=== PATIENT | male | born 1970 ===

== ENCOUNTER 2019-08-18 15:06 | IRF | payer OTHER, SELFPAY ==
[2019-08-18 15:40] VITALS: BP 127/74; PULSE 70; RESP 18; TEMP 36.4; O2SAT 100; BMI 32.4
[2019-08-18 16:00] VITALS: PULSE 70; RESP 18; O2SAT 100
[2019-08-18 17:01] LABS: Glucose Point of Care 148 (65-105)
[2019-08-18] MEDS: RIVAROXABAN 20 MG TABLET PO (17:34)
[2019-08-18] MEDS: DULOXETINE HCL 30 MG CAPSULE.DR PO (17:35)
[2019-08-18] MEDS: metFORMIN HCL 500 MG TABLET 1000 MG PO (17:35)
[2019-08-18] MEDS: FERROUS SULFATE 324 MG TABLET PO (17:36)
--- NOTE | 2019-08-18 18:13 | ADMGEN ---
This patient, Kwan Woods, was admitted to [facility] Room 225-02. Patient/family oriented to hospital policies and general routines including ID bracelet, bed and alarms, visiting hours, pain management, procedures, bathroom and other care routines, personal items, smoking policy, room service/diet, and visiting hours. Valuables list has been completed. Information on how to activate the Rapid Response Team has been discussed. Patient/Family are encouraged to report perceived risks to care and to ask questions if they do not understand what they are told or what they should do.
[2019-08-18 20:10] LABS: Glucose Point of Care 213 (65-105)
[2019-08-18] MEDS: CEFUROXIME AXETIL 250 MG TABLET 500 MG PO (20:39)
[2019-08-18 20:41] VITALS: PULSE 80
[2019-08-18] MEDS: METOPROLOL TARTRATE 25 MG TABLET PO (20:41)
[2019-08-18] MEDS: ATORVASTATIN 20 MG TABLET PO (20:42)
[2019-08-18 22:00] VITALS: BP 136/66; PULSE 77; RESP 18; TEMP 36.5; O2SAT 96
[2019-08-19 04:48] LABS: Basophils Percent Auto 0.4 % (0.2-1.2); Eosinophils Absolute Auto 0.5 K/mm3 (0-0.3); Eosinophils Percent Auto 6.9 % (0-4.4); Hematocrit 24.6 % (42.0-52.0); Hemoglobin 7.9 g/dL (14.0-18.0); Immature Granulocyte Absolute 0.19 K/mm3 (0.00-0.031); Immature Granulocyte Percent A 2.8 % (0-0.5); Lymphocytes Absolute Auto 1.54 K/mm3 (0.9-3.2); Lymphocytes Percent Auto 23.1 % (18.3-44.2); Mean Corpuscular HGB Conc 32.1 g/dl (32-36); Mean Corpuscular Hemoglobin 27.1 pg (26-34); Mean Corpuscular Volume 84.2 fl (80-100); Mean Platelet Volume 8.8 fl (7.4-10.4); Monocytes Absolute Auto 0.5 K/mm3 (0.1-0.6); Monocytes Percent Auto 6.9 % (2.6-8.5); Neutrophils Percent Auto 59.9 % (45.5-73.1); Platelet Count Result 352 k/mm3 (150-375); Red Blood Count 2.92 M/mm3 (4.6-6.20); Red Cell Distribution Width 13.5 % (11.5-14.5); White Blood Count 6.7 K/mm3 (4.5-10.0)
[2019-08-19 05:10] LABS: Blood Urea Nitrogen 5 mg/dL (9-20); Calcium 8.3 mg/dL (8.4-10.2); Carbon Dioxide 25 mmol/L (22-30); Chloride 99 mmol/L (98-107); Estimated CRCL calculation 135 ml/min; Estimated Glomerular Filt Rate > 60; Glucose 190 mg/dL (75-110); Potassium 3.9 mmol/L (3.4-5.0); Sodium 132 mmol/L (137-145)
[2019-08-19 06:00] VITALS: BP 128/62; PULSE 69; RESP 19; TEMP 36.2; O2SAT 99
[2019-08-19 07:02] LABS: Glucose Point of Care 189 (65-105)
[2019-08-19] MEDS: lisinopriL 20 MG TABLET PO (09:24)
[2019-08-19] MEDS: FERROUS SULFATE 324 MG TABLET PO ×2 (09:24→16:58)
[2019-08-19] MEDS: MELOXICAM 7.5 MG TABLET 15 MG PO (09:24)
[2019-08-19] MEDS: metFORMIN HCL 500 MG TABLET 1000 MG PO ×2 (09:24→16:59)
[2019-08-19 09:25] VITALS: PULSE 69
[2019-08-19] MEDS: METOPROLOL TARTRATE 25 MG TABLET PO ×2 (09:25→20:09)
[2019-08-19] MEDS: CHOLECALCIFEROL 1,000 UNIT TABLET 2000 UNITS PO (09:25)
[2019-08-19] MEDS: CEFUROXIME AXETIL 250 MG TABLET 500 MG PO ×2 (09:25→20:08)
[2019-08-19] MEDS: DULOXETINE HCL 30 MG CAPSULE.DR PO ×2 (09:25→17:00)
[2019-08-19] MEDS: BISACODYL 5 MG TABLET EC 10 MG PO (09:25)
--- NOTE | 2019-08-19 09:30 | WPDREHABHP ---
H&P: HPI History of Present Illness Chief complaint: R BKA Narrative: Kwan Woods is a 49 year old male HISTORY OF PRESENT ILLNESS: The patient's primary rehab impairment category is 10- amputation-lower extremity The etiologic diagnosis is osteomyelitis right foot I saw this patient [id number] on August 19 at 9:30 a.m. The patient is a 49-year-old right-handed white male with a prior medical history of diabetes mellitus with polyneuropathy osteomyelitis of right foot and septic arthritis status post recent toe amputation who presented to [facility] on August 13, 2019 with worsening swelling of the right foot associated with fever chills and pain. Patient is being followed by a wallpaper hanger helper and he is status post amputation of right 1st toe, 3rd toe, and 1st metatarsal a few months ago and recent removal of blister on plantar aspect. He was found to have a 3 x 6 centimeter open skin ulceration in the plantar aspect of his right foot, skin erythema with right foot swelling that has been chronic to some extent. The patient was placed on IV vancomycin and ceftriaxone. Infectious Disease was consulted concerning his right diabetic foot infection and osteomyelitis and recommended switching Rocephin to Unasyn to have an aura be coverage. Infectious Disease was concerned the foot was not salvageable. Cardiology consulted for atrial fibrillation with rapid ventricular response and place patient on heparin drip, Cardizem drip, and oral Cardizem was added to medication regiment. Echocardiogram showed normal left ventricular function with trace pericardial effusion and no major valvular disease. Next week on Myoview ordered and was negative he was weaned from the Cardizem drip and cleared for surgery. Vascular surgery consulted and recommended a right [id number] amputation. Patient's blood supply to the lower extremity was reasonably normal indicating that the proper healing at the amputation site would be expected. His surgery was performed on August 15, 2019. Postoperatively he experienced acute postoperative pain and acute blood-loss anemia. His pain is controlled on oral pain medications and his hemoglobin is low but stable at 7.9. Final blood cultures are negative. He did fall at around midnight on August 18, 2019. Nurse was right outside the door vital signs stable and no signs of injury. Therapy was initiated at the acute care facility and the patient transferred to us from [facility] on August 18 2019 FALLS OR SURGERIES: The patient has had major surgeries in the 100 days prior to admission. They had no falls in the past year. They had no falls with injury in the past year. 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 He was working full-time as a delivery service planner. He reported no falls in the past 6 months. He underwent a right [id number] amputation this hospitalization FAMILY HISTORY: significant for hypertension and possibly for diabetes PRIOR LEVEL OF FUNCTION: Eating was INDEPENDENT Oral Care was INDEPENDENT Toileting Hygiene was INDEPENDENT Shower/Bathing was INDEPENDENT Upper Body Dressing was INDEPENDENT Lower Body Dressing was INDEPENDENT Donning/Deloit Footwear was INDEPENDENT Rolling Left and Right was INDEPENDENT Sit to Lying was INDEPENDENT Lying to Sitting was INDEPENDENT Sit to Stand was INDEPENDENT Bed to Chair Trans
[2019-08-19 11:56] LABS: Glucose Point of Care 164 (65-105)
[2019-08-19 13:41] VITALS: BMI 32.4
[2019-08-19 14:00] VITALS: BP 128/73; PULSE 84; RESP 20; TEMP 36.2; O2SAT 100
--- NOTE | 2019-08-19 14:05 | RPD ---
INDIVIDUALIZED PLAN OF CARE FOR Kwan Woods Brief Synthesis of Pre-Admission Screen, Post-Admission Evaluation and Therapy Evaluations: The patient presents to rehab with osteomyelitis right foot. Comorbidities include atrial fibrillation, hypertension, diabetes mellitus.The patient requires physician services for medical oversight, management of post-op complications in the setting of present comorbidities, management of diabetes mellitus, new atrial fibrillation diagnosis, and pain management. Post-op complications have included atrial fibrillation, acute blood loss anemia, and postoperative pain. The patient requires nursing services for anticoagulation therapy, diabetes training, DVT prophylactics, infection protection, medication management and education, pressure relief, and wound care. Deficits include:ADLs, Balance, Endurance, Mobility, Pain Management, ROM, Safety, Strength, Transfers Cooper Helper/Case Management for: Discharge Planning and Patient/Family Counseling Physical Therapy: 5 days per week for 90 minutes. Treatments may include: Therapeutic Exercise, Gait Training, Neuromuscular Re-education, Transfer Training, Community Reintegration, Bed Mobility, Patient/Family Education, Wheelchair Mobility Group Therapy/Concurrent Therapy Rationales: -Improve attention span during functional activities in a distracted environment. -Enhance problem solving and/or adequate judgment skills during functional activities in a distracted environment. -Promote increased safety awareness in a distracted environment to reduce fall risk with functional tasks, transfers, and ambulation to allow a more safe, self-sufficient return to the home environment. -Improve dynamic balance skills to promote safety and independence with functional activities in a distracted environment for maximum gain. Occupational Therapy: 5 days per week for 90 minutes. Treatments may include: Therapeutic Exercise, Therapeutic Activity, Cognitive Training, Self-Care Transfer Training, Community Reintegration, Home Management, Patient/Family Education, Wheelchair Mobility Training, Energy Conservation Training Group Therapy/Concurrent Therapy Rationales: -Allow therapist to observe and teach generalization and carry-over of skills learned in individual therapy. -Enhance problem solving and sequencing skills during therapeutic activities in a distracted environment. -Promote increased safety awareness in a realistic setting to reduce fall risk with functional tasks due to visual and verbal distractions. -Increase functional level with ADLs, ADL transfers and use of adaptive equipment through therapeutic activities with others while promoting safety to allow a more safe, self-sufficient return home. Medical Prognosis: Good Anticipated Length of Stay: 10 days Rehab Goals: Eating Goal: 06-Independent Oral Hygiene Goal: 06-Independent Toileting Hygiene Goal: 06-Independent Shower/Bathe Self Goal: 06-Independent Upper Body Dressing Goal: 06-Independent Lower Body Dressing Goal: 06-Independent Putting On/Taking Off Footwear Goal: 06-Independent Rolling Left and Right Goal: 06-Independent Sit to Lying Goal: 06-Independent Lying to Sitting on Side of Bed Goal: 06-Independent Sit to Stand Goal: 06-Independent Chair/Smn-yn-Anlnv Transfer Goal: 06-Independent Toilet Transfer Goal: 06-Independent Car Transfer Goal: 06-Independent Walk 10' Goal: 06-Independent Walk 50' with Two Turns Goal: 06-Independent Walk 150' Goal: 06-Independent Walk 10' on Uneven Surface Goal: 06-Independent 1 Step (Curb) Goal: 05-Setup or Clean Up Assistance 4 Steps Goal: 05-Setup or Clean Up Assistance 12 Steps Goal Score: 05-Setup or Clean Up Assistance Picking Up Object Goal: 06-Independent Wheel 50' with Two Turns Score: 06-Independent Wheel 150' Goal: 06-Independent Anticipated discharge destination: Home
--- NOTE | 2019-08-19 14:09 | PCNSR ---
On 08/19/19, the student, Leandra Betancur, provided care and completed [facility] documentation on this patient. I have reviewed the student's documentation and agree with the findings.
[2019-08-19] MEDS: RIVAROXABAN 20 MG TABLET PO (16:58)
[2019-08-19 17:39] LABS: Glucose Point of Care 223 (65-105)
[2019-08-19] MEDS: glipiZIDE XL 5 MG TABCR PO (20:08)
[2019-08-19 20:09] VITALS: PULSE 84
[2019-08-19] MEDS: ATORVASTATIN 20 MG TABLET PO (20:09)
[2019-08-19 21:14] LABS: Glucose Point of Care 256 (65-105)
[2019-08-19 22:00] VITALS: BP 138/53; PULSE 74; RESP 19; TEMP 36.5; O2SAT 100
[2019-08-20 06:00] VITALS: BP 123/64; PULSE 68; RESP 19; TEMP 36.2; O2SAT 100
[2019-08-20 06:53] LABS: Glucose Point of Care 185 (65-105)
[2019-08-20] MEDS: CEFUROXIME AXETIL 250 MG TABLET 500 MG PO ×2 (08:46→20:19)
[2019-08-20] MEDS: MELOXICAM 7.5 MG TABLET 15 MG PO (08:46)
[2019-08-20] MEDS: CHOLECALCIFEROL 1,000 UNIT TABLET 2000 UNITS PO (08:47)
[2019-08-20] MEDS: METOPROLOL TARTRATE 25 MG TABLET PO ×2 (08:47→20:19)
[2019-08-20] MEDS: DULOXETINE HCL 30 MG CAPSULE.DR PO ×2 (08:47→18:02)
[2019-08-20] MEDS: metFORMIN HCL 500 MG TABLET 1000 MG PO ×2 (08:47→18:01)
[2019-08-20] MEDS: lisinopriL 20 MG TABLET PO (08:47)
[2019-08-20] MEDS: FERROUS SULFATE 324 MG TABLET PO ×2 (08:48→18:00)
--- NOTE | 2019-08-20 10:23 | PCOTNOTE ---
Pt performed kitchen mobility using wheeled walker for 15 minutes. Pt able to demonstrate safety when removing items from fridge, reaching high to retrieve items, reaching low to retrieve items, and wash a dish with SBA.
[2019-08-20 12:09] LABS: Glucose Point of Care 86 (65-105)
[2019-08-20 14:00] VITALS: BP 128/68; PULSE 72; RESP 20; TEMP 36.3; O2SAT 98
[2019-08-20] MEDS: RIVAROXABAN 20 MG TABLET PO (18:01)
[2019-08-20] MEDS: glipiZIDE XL 5 MG TABCR PO (20:19)
[2019-08-20] MEDS: ATORVASTATIN 20 MG TABLET PO (20:19)
[2019-08-20 20:40] LABS: Glucose Point of Care 168 (65-105)
[2019-08-20 21:14] VITALS: BP 139/73; PULSE 69; RESP 20; TEMP 36.5; O2SAT 99
[2019-08-21 05:56] VITALS: BP 129/72; PULSE 64; RESP 20; TEMP 36.6; O2SAT 99
[2019-08-21 06:37] LABS: Glucose Point of Care 155 (65-105)
[2019-08-21 08:00] VITALS: PULSE 78; RESP 20; O2SAT 98
[2019-08-21 09:52] VITALS: PULSE 64
[2019-08-21] MEDS: lisinopriL 20 MG TABLET PO (09:52)
[2019-08-21] MEDS: metFORMIN HCL 500 MG TABLET 1000 MG PO ×2 (09:52→17:37)
[2019-08-21] MEDS: METOPROLOL TARTRATE 25 MG TABLET PO ×2 (09:52→20:39)
[2019-08-21] MEDS: CEFUROXIME AXETIL 250 MG TABLET 500 MG PO ×2 (09:53→20:39)
[2019-08-21] MEDS: FERROUS SULFATE 324 MG TABLET PO ×2 (09:53→17:37)
[2019-08-21] MEDS: CHOLECALCIFEROL 1,000 UNIT TABLET 2000 UNITS PO (09:53)
[2019-08-21] MEDS: BISACODYL 5 MG TABLET EC 10 MG PO (09:53)
[2019-08-21] MEDS: MELOXICAM 7.5 MG TABLET 15 MG PO (09:53)
[2019-08-21] MEDS: DULOXETINE HCL 30 MG CAPSULE.DR PO ×2 (09:54→17:37)
[2019-08-21 12:11] LABS: Glucose Point of Care 68 (65-105)
[2019-08-21 14:00] VITALS: BP 113/64; PULSE 78; RESP 20; TEMP 36.2; O2SAT 98
[2019-08-21] MEDS: RIVAROXABAN 20 MG TABLET PO (17:38)
[2019-08-21 20:39] VITALS: PULSE 80
[2019-08-21] MEDS: ATORVASTATIN 20 MG TABLET PO (20:39)
[2019-08-21] MEDS: glipiZIDE XL 5 MG TABCR PO (20:39)
[2019-08-21] MEDS: GUAIFENESIN/DEXTROMETHORPHAN 10 ML UDC PO (20:41)
[2019-08-21 21:25] LABS: Glucose Point of Care 121 (65-105)
[2019-08-21 22:00] VITALS: BP 139/69; PULSE 74; RESP 18; TEMP 36.7; O2SAT 96
[2019-08-22 06:00] VITALS: BP 132/64; PULSE 72; RESP 18; TEMP 36.8; O2SAT 99
[2019-08-22 07:42] LABS: Glucose Point of Care 134 (65-105)
[2019-08-22] MEDS: metFORMIN HCL 500 MG TABLET 1000 MG PO ×2 (08:30→16:46)
[2019-08-22 08:31] VITALS: PULSE 72
[2019-08-22] MEDS: CEFUROXIME AXETIL 250 MG TABLET 500 MG PO ×2 (08:31→21:38)
[2019-08-22] MEDS: CHOLECALCIFEROL 1,000 UNIT TABLET 2000 UNITS PO (08:31)
[2019-08-22] MEDS: FERROUS SULFATE 324 MG TABLET PO ×2 (08:31→16:46)
[2019-08-22] MEDS: MELOXICAM 7.5 MG TABLET 15 MG PO (08:31)
[2019-08-22] MEDS: DULOXETINE HCL 30 MG CAPSULE.DR PO ×2 (08:31→16:46)
[2019-08-22] MEDS: METOPROLOL TARTRATE 25 MG TABLET PO ×2 (08:31→21:38)
[2019-08-22] MEDS: lisinopriL 20 MG TABLET PO (08:33)
--- NOTE | 2019-08-22 09:32 | WPDNEURORHBP ---
Subjective Date/time seen: 08/22/19 09:32 Review of Systems Review of Systems: All systems reviewed & are unremarkable except as noted in HPI and below Functional Status Ambulation Ability Ability to Ambulate 10 Feet: Standby Assistance Ability to Ambulate 50 Feet With 2 Turns: Standby Assistance Ability to Ambulate 150 Feet: Standby Assistance Ambulation Assistive Devices: Walker, Standard Transfers Ability Ability to Transfer In/Out of Chair: Independent Exam Const: General: cooperative, comfortable and no acute distress Nutritional Appearance: well nourished Orientation/consciousness: patient oriented x3 Neck: Neck: full ROM and no lymphadenopathy Resp: Effort & Inspection: normal respiratory effort and able to speak in complete sentences Auscultation: clear to auscultation bilaterally Cardio: Rate: regular rate Rhythm: regular rhythm GI: Auscultation: normal bowel sounds Skin: General skin exam: no rashes or lesions noted (incision clean) Neuro: General: patient oriented x3 Gait exam (Neuro): Unable to assess gait (needs assistancce in all activities of living) Objective Data Vital Signs Vital Signs: Vital Signs - 24 hr 08/21/19 09:52 08/21/19 14:00 08/21/19 20:39 Temperature 36.2 C L Pulse Rate 64 78 80 Respiratory Rate 20 Blood Pressure 113/64 Pulse Oximetry 98 08/21/19 22:00 08/22/19 06:00 08/22/19 08:31 Temperature 36.7 C 36.8 C Pulse Rate 74 72 72 Respiratory Rate 18 18 Blood Pressure 139/69 132/64 Pulse Oximetry 96 99 Intake/Output Intake/Output: Intake & Output 08/19/19 08/20/19 08/21/19 08/22/19 23:59 23:59 23:59 23:59 Intake Total 1440 480 480 240 Balance 1440 480 480 240 Meds/Results Medications: Active Medications Generic Name Dose Route Start Last Admin Trade Name Freq PRN Reason Stop Dose Admin Acetaminophen 650 mg 08/18/19 15:50 Tylenol Tablet PO Q4H PRN Mild Pain (Scale Score 1-4) Hydrocodone Bitart/Acetaminophen 1 - 2 tab 08/18/19 15:50 [place] 5-325 Mg PO Q4H PRN Pain Atorvastatin Calcium 20 mg 08/18/19 21:00 08/21/19 20:39 Lipitor PO 20 mg HS CRYSTAL Administration Bisacodyl 10 mg 08/19/19 09:00 08/22/19 08:32 Dulcolax Tab PO Not Given DAILY [facility] Cefuroxime Axetil 500 mg 08/18/19 21:00 08/22/19 08:31 Ceftin PO 500 mg Q12HR CRYSTAL Administration Duloxetine HCl 30 mg 08/18/19 17:00 08/22/19 08:31 Cymbalta PO 30 mg BID CRYSTAL Administration Ferrous Sulfate 324 mg 08/18/19 17:00 08/22/19 08:31 Ferrous Sulfate PO 324 mg BIDWM CRYSTAL Administration Glipizide 5 mg 08/19/19 21:00 08/21/19 20:39 Glucotrol Xl PO 5 mg HS [facility] Administration Guaifenesin/Dextromethorphan 10 ml 08/21/19 11:15 08/21/19 20:41 Robitussin-Dm Syrup PO 10 ml Q4H PRN Administration Cough Lisinopril 20 mg 08/19/19 09:00 08/22/19 08:33 Prinivil PO 20 mg DAILY [facility] Administration Meloxicam 15 mg 08/19/19 09:00 08/22/19 08:31 Mobic PO 09/18/19 09:01 15 mg DAILY [facility] Administration Metformin HCl 1,000 mg 08/18/19 17:00 08/22/19 08:30 Glucophage PO 1,000 mg BID [facility] Administration Metoprolol Tartrate 25 mg 08/18/19 21:00 08/22/19 08:31 Lopressor PO 25 mg Q12HR CRYSTAL Administration Rivaroxaban 20 mg 08/18/19 18:00 08/21/19 17:38 Xarelto PO 20 mg QPM [facility] Administration Vitamin D 2,000 unit 08/19/19 09:00 08/22/19 08:31 Vitamin D PO 2,000 unit QAM [facility] Administration Labs Labs: Laboratory Results - last 24 hr 08/21/19 08/21/19 08/22/19 12:09 20:43 07:10 POC Capillary Glucose 68 121 H 134 H Progress Note: A&P Assessment and Plan (1) Below-knee amputation of right lower extremity: Code(s): S88.111A - Complete traumatic amputation at level between knee and ankle, right lower leg, initial encounter Status: Acute (2) Atrial fibrillation: Code(s): I48.91 - Unspecified atri
[2019-08-22 12:03] LABS: Glucose Point of Care 86 (65-105)
[2019-08-22 15:39] VITALS: BP 129/65; PULSE 77; RESP 17; TEMP 36.5; O2SAT 98
[2019-08-22] MEDS: RIVAROXABAN 20 MG TABLET PO (16:46)
[2019-08-22 16:56] LABS: Glucose Point of Care 78 (65-105)
[2019-08-22 20:27] VITALS: BP 133/66; PULSE 73; RESP 17; TEMP 36.4; O2SAT 99
[2019-08-22 21:27] LABS: Glucose Point of Care 220 (65-105)
[2019-08-22 21:38] VITALS: PULSE 76
[2019-08-22] MEDS: ATORVASTATIN 20 MG TABLET PO (21:38)
[2019-08-22] MEDS: glipiZIDE XL 5 MG TABCR PO (21:38)
[2019-08-23 06:41] VITALS: BP 135/79; PULSE 68; RESP 18; TEMP 36.8; O2SAT 100
[2019-08-23 07:07] LABS: Glucose Point of Care 96 (65-105)
[2019-08-23] MEDS: CEFUROXIME AXETIL 250 MG TABLET 500 MG PO ×2 (09:29→20:32)
[2019-08-23] MEDS: DULOXETINE HCL 30 MG CAPSULE.DR PO ×2 (09:29→16:47)
[2019-08-23] MEDS: CHOLECALCIFEROL 1,000 UNIT TABLET 2000 UNITS PO (09:29)
[2019-08-23] MEDS: FERROUS SULFATE 324 MG TABLET PO ×2 (09:29→16:47)
[2019-08-23] MEDS: metFORMIN HCL 500 MG TABLET 1000 MG PO ×2 (09:30→16:47)
[2019-08-23] MEDS: METOPROLOL TARTRATE 25 MG TABLET PO ×2 (09:30→20:32)
[2019-08-23] MEDS: lisinopriL 20 MG TABLET PO (09:30)
[2019-08-23] MEDS: MELOXICAM 7.5 MG TABLET 15 MG PO (09:30)
--- NOTE | 2019-08-23 13:46 | PCCCNOTE ---
On 08/23/19, the student, [Herb Hernandez], provided care and completed [facility] documentation on this patient. I have reviewed the student's documentation and agree with the findings.
[2019-08-23 14:00] VITALS: BP 112/66; PULSE 78; RESP 18; TEMP 36.3; O2SAT 98
[2019-08-23] MEDS: RIVAROXABAN 20 MG TABLET PO (16:47)
--- NOTE | 2019-08-23 16:48 | WPDNEURORHBP ---
Subjective Date/time seen: 08/23/19 16:48 Interval history: patient is doing remarkably well and will be discharged tomorrow he will be in the independent living does not have any complaints particularly referring to his cardiovascular system and also does not have any fevers chills sore throat or any sign of infectious process Review of Systems Constitutional: Constitutional: Reports no additional constitutional complaints Eyes: Eyes: Reports no additional eye complaints ENT: Reports system reviewed and no additional complaints, except as documented Cardiovascular: Cardiovascular: Reports no additional cardiovascular complaints Respiratory: Respiratory: Reports no additional respiratory complaints Gastrointestinal: Gastrointestinal: Reports no additional gastrointestinal complaints Genitourinary: Genitourinary: Reports no additional male genitourinary complaints Musculoskeletal: Musculoskeletal: Reports no additional musculoskeletal complaints Integumentary/Breasts: Skin/Breast: Reports system reviewed and no additional complaints, except as docu Neurologic: Reports system reviewed and no additional complaints, except as documented Psychiatric: Psychiatric: Reports no additional psychiatric complaints Functional Status Ambulation Ability Ability to Ambulate 10 Feet: Independent Ability to Ambulate 50 Feet With 2 Turns: Independent Ability to Ambulate 150 Feet: Independent Ambulation Assistive Devices: Walker, Wheeled Transfers Ability Ability to Transfer In/Out of Chair: Independent Exam Const: General: comfortable and no acute distress HENMT: General nose exam: Normal nares present Mouth: Yes moist mucous membranes Eyes: General: appearance normal, both eyes and all related structures Neck: Neck: supple and no JVD Resp: Effort & Inspection: normal respiratory effort Auscultation: clear to auscultation bilaterally Cardio: Rate: regular rate Rhythm: regular rhythm GI: GI Palp: Yes Soft to palpation Auscultation: normal bowel sounds Skin: General skin exam: normal color and no rashes or lesions noted Neuro: Other: patient's remain alert will oriented time place and person quite elaborate a dense history giving motor examination remains intact apart from the evidence of peripheral neuropathy and peripheral vascular disease the stump remains healthy Extrem: Other: right BKA Psych: Mental Status: mental status grossly normal Objective Data Vital Signs Vital Signs: Vital Signs - 24 hr 08/22/19 20:27 08/22/19 21:38 08/23/19 06:41 Temperature 36.4 C 36.8 C Pulse Rate 73 76 68 Respiratory Rate 17 18 Blood Pressure 133/66 135/79 Pulse Oximetry 99 100 08/23/19 14:00 Temperature 36.3 C L Pulse Rate 78 Respiratory Rate 18 Blood Pressure 112/66 Pulse Oximetry 98 Intake/Output Intake/Output: Intake & Output 08/20/19 08/21/19 08/22/19 08/23/19 23:59 23:59 23:59 23:59 Intake Total 938 117 3100 480 Balance 524 954 5167 480 Meds/Results Medications: Active Medications Generic Name Dose Route Start Last Admin Trade Name Freq PRN Reason Stop Dose Admin Acetaminophen 650 mg 08/18/19 15:50 Tylenol Tablet PO Q4H PRN Mild Pain (Scale Score 1-4) Hydrocodone Bitart/Acetaminophen 1 - 2 tab 08/18/19 15:50 [place] 5-325 Mg PO Q4H PRN Pain Atorvastatin Calcium 20 mg 08/18/19 21:00 08/22/19 21:38 Lipitor PO 20 mg HS CRYSTAL Administration Bisacodyl 10 mg 08/22/19 10:44 Dulcolax Tab PO DAILY PRN Constipation Cefuroxime Axetil 500 mg 08/18/19 21:00 08/23/19 09:29 Ceftin PO 500 mg Q12HR CRYSTAL Administration Duloxetine HCl 30 mg 08/18/19 17:00 08/23/19 09:29 Cymbalta PO 30 mg BID CRYSTAL Administration Ferrous Sulfate 324 mg 08/18/19 17:00 08/23/19 09:29 Ferrous Sulfate PO 324 mg BIDWM CRYSTAL Administration Glipizide 5 mg 08/19/19 21:00 08/22/19 21:38 Glucotrol Xl PO 5 mg HS CRYSTAL Adminis
[2019-08-23 17:04] LABS: Glucose Point of Care 127 (65-105)
[2019-08-23] MEDS: ATORVASTATIN 20 MG TABLET PO (20:32)
[2019-08-23] MEDS: glipiZIDE XL 5 MG TABCR PO (20:32)
[2019-08-23 22:00] VITALS: BP 124/56; PULSE 75; RESP 18; TEMP 35.7; O2SAT 99
[2019-08-24 06:00] VITALS: BP 124/56; PULSE 72; RESP 18; TEMP 35.7; O2SAT 99
[2019-08-24 06:13] LABS: Glucose Point of Care 114 (65-105)
[2019-08-24 08:00] VITALS: PULSE 72; RESP 18; O2SAT 99
[2019-08-24 08:22] VITALS: PULSE 72
[2019-08-24] MEDS: CEFUROXIME AXETIL 250 MG TABLET 500 MG PO (08:22)
[2019-08-24] MEDS: METOPROLOL TARTRATE 25 MG TABLET PO (08:22)
[2019-08-24] MEDS: CHOLECALCIFEROL 1,000 UNIT TABLET 2000 UNITS PO (08:22)
[2019-08-24] MEDS: FERROUS SULFATE 324 MG TABLET PO (08:23)
[2019-08-24] MEDS: MELOXICAM 7.5 MG TABLET 15 MG PO (08:23)
[2019-08-24] MEDS: DULOXETINE HCL 30 MG CAPSULE.DR PO (08:23)
[2019-08-24] MEDS: lisinopriL 20 MG TABLET PO (08:23)
[2019-08-24] MEDS: metFORMIN HCL 500 MG TABLET 1000 MG PO (08:23)
--- NOTE | 2019-08-24 10:50 | WPDNEURORHBP ---
Subjective Date/time seen: 08/24/19 10:50 Interval history: Patient is here because of right [id number] amputation has done very well in the rehab and ready to be discharged today does not have any complaints quite happy with the care he received Review of Systems Constitutional: Constitutional: Reports no additional constitutional complaints Eyes: Eyes: Reports no additional eye complaints ENT: Reports system reviewed and no additional complaints, except as documented Cardiovascular: Cardiovascular: Reports no additional cardiovascular complaints Respiratory: Respiratory: Reports no additional respiratory complaints Gastrointestinal: Gastrointestinal: Reports no additional gastrointestinal complaints Genitourinary: Genitourinary: Reports no additional male genitourinary complaints Musculoskeletal: Musculoskeletal: Reports no additional musculoskeletal complaints Integumentary/Breasts: Skin/Breast: Reports system reviewed and no additional complaints, except as docu Neurologic: Reports system reviewed and no additional complaints, except as documented Psychiatric: Psychiatric: Reports no additional psychiatric complaints Functional Status Ambulation Ability Ability to Ambulate 10 Feet: Independent Ability to Ambulate 50 Feet With 2 Turns: Independent Ability to Ambulate 150 Feet: Independent Ambulation Assistive Devices: Walker, Wheeled Transfers Ability Ability to Transfer In/Out of Chair: Independent Exam Const: General: comfortable and no acute distress HENMT: General nose exam: Normal nares present Mouth: Yes moist mucous membranes Eyes: General: appearance normal, both eyes and all related structures Neck: Neck: supple and no JVD Resp: Effort & Inspection: normal respiratory effort Auscultation: clear to auscultation bilaterally Cardio: Rate: regular rate Rhythm: regular rhythm GI: GI Palp: Yes Soft to palpation Auscultation: normal bowel sounds : Male General Exam: Yes normal external exam Skin: General skin exam: normal color and no rashes or lesions noted Neuro: Other: mental status is normal cranial nerve examination is normal reflexes are diminished has evidence of peripheral neuropathy and peripheral vascular disease Extrem: Other: right BKA stump is clean Psych: Mental Status: mental status grossly normal Objective Data Vital Signs Vital Signs: Vital Signs - 24 hr 08/23/19 14:00 08/23/19 22:00 08/24/19 06:00 Temperature 36.3 C L 35.7 C L 35.7 C L Pulse Rate 78 75 72 Respiratory Rate 18 18 18 Blood Pressure 112/66 124/56 L 124/56 L Pulse Oximetry 98 99 99 08/24/19 08:00 08/24/19 08:22 Temperature Pulse Rate 72 72 Respiratory Rate 18 Blood Pressure Pulse Oximetry 99 Intake/Output Intake/Output: Intake & Output 08/21/19 08/22/19 08/23/19 08/24/19 23:59 23:59 23:59 23:59 Intake Total 480 1200 720 480 Balance 480 1200 720 480 Meds/Results Medications: Active Medications Generic Name Dose Route Start Last Admin Trade Name Freq PRN Reason Stop Dose Admin Acetaminophen 650 mg 08/18/19 15:50 Tylenol Tablet PO Q4H PRN Mild Pain (Scale Score 1-4) Hydrocodone Bitart/Acetaminophen 1 - 2 tab 08/18/19 15:50 [place] 5-325 Mg PO Q4H PRN Pain Atorvastatin Calcium 20 mg 08/18/19 21:00 08/23/19 20:32 Lipitor PO 20 mg HS CRYSTAL Administration Bisacodyl 10 mg 08/22/19 10:44 Dulcolax Tab PO DAILY PRN Constipation Cefuroxime Axetil 500 mg 08/18/19 21:00 08/24/19 08:22 Ceftin PO 500 mg Q12HR CRYSTAL Administration Duloxetine HCl 30 mg 08/18/19 17:00 08/24/19 08:23 Cymbalta PO 30 mg BID CRYSTAL Administration Ferrous Sulfate 324 mg 08/18/19 17:00 08/24/19 08:23 Ferrous Sulfate PO 324 mg BIDWM CRYSTAL Administration Glipizide 5 mg 08/19/19 21:00 08/23/19 20:32 Glucotrol Xl PO 5 mg HS [facility]YSTAL Administration Guaifenesin/Dextromethorphan 10 ml 08/21/19 11:15
[2019-08-24 11:36] LABS: Basophils Absolute Auto 0.1 K/mm3 (0.0-0.1); Basophils Percent Auto 0.9 % (0.2-1.2); Eosinophils Absolute Auto 0.4 K/mm3 (0-0.3); Eosinophils Percent Auto 5.3 % (0-4.4); Hematocrit 32.3 % (42.0-52.0); Immature Granulocyte Absolute 0.09 K/mm3 (0.00-0.031); Immature Granulocyte Percent A 1.3 % (0-0.5); Lymphocytes Absolute Auto 1.95 K/mm3 (0.9-3.2); Lymphocytes Percent Auto 28.7 % (18.3-44.2); Mean Corpuscular Hemoglobin 27.2 pg (26-34); Mean Corpuscular Volume 87.8 fl (80-100); Mean Platelet Volume 8.8 fl (7.4-10.4); Monocytes Absolute Auto 0.5 K/mm3 (0.1-0.6); Monocytes Percent Auto 7.7 % (2.6-8.5); Neutrophils Absolute Auto 3.8 K/mm3 (1.3-6.7); Neutrophils Percent Auto 56.1 % (45.5-73.1); Platelet Count Result 590 k/mm3 (150-375); Red Blood Count 3.68 M/mm3 (4.6-6.20); Red Cell Distribution Width 15.1 % (11.5-14.5); White Blood Count 6.8 K/mm3 (4.5-10.0)
--- NOTE | 2019-08-28 12:16 | PM.DS ---
DS: Diagnosis Admitting Diagnosis Admitting Diagnosis: Other osteomyelitis, ankle and foot Discharge Diagnosis (1) Anemia: Code(s): D64.9 - Anemia, unspecified Status: Acute (2) Below-knee amputation of right lower extremity: Code(s): S88.111A - Complete traumatic amputation at level between knee and ankle, right lower leg, initial encounter Status: Acute (3) Atrial fibrillation: Code(s): I48.91 - Unspecified atrial fibrillation Status: Acute (4) Hypertension: Code(s): I10 - Essential (primary) hypertension Status: Acute (5) Diabetes mellitus treated with oral medication: Code(s): E11.9 - Type 2 diabetes mellitus without complications; Z79.84 - retirement (current) use of oral hypoglycemic drugs Status: Acute DS: Summary Hospital Course Reason for hospitalization: this 49-year-old was admitted because of right lower extremity amputation which followed the osteomyelitis of the right foot the [facility] available in the stent physical examination the patient does have a history of diabetes mellitus foot ulcers atrial fibrillation hypertension TIA without residual effect in 2016 hyperlipidemia polyneuropathy osteomyelitis of the right foot septic arthritis status post amputation of the toes and metatarsal, cataract left eye 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 Hospital Course: patient received the medical management for the above-mentioned comorbidities and PT OT and gait training and was able to be sent home with the following for achieved independent measures eating was independent oral hygiene was independent toileting was independent bathing with independent upper body dressing independent lower body dressing independent foot fair independent rolling in bed independent sitting to lying independent lying to sitting independent [id number]-[id number] independent keep chair transfers independent prior transfers independent are transfers independent walking 10 feet independent walking 50 feet for 2 are turns independent walking 150 feet independent walking 10 feet uneven surfaces independent car were step supervision for staff supervision 12 staff supervision making about checked independent wheelchair 50 feet independent and wheelchair and 50 feet independent Status at Discharge Cognitive/behavioral status at discharge: patient's cognitive and behavioral status was within the normal range Time Spent with Patient Time attestation: Total time spent providing and/or coordinating discharge services: Time spent: Greater than 30 minutes Exam Const: General: comfortable and no acute distress HENMT: General nose exam: Normal nares present Mouth: Yes dry mucous membranes Eyes: Other: 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 and evidence of diabetic retinopathy on a bilaterally and change Neck: Neck: supple and no JVD Resp: Effort & Inspection: normal respiratory effort Auscultation: clear to auscultation bilaterally Cardio: Rate: regular rate Rhythm: regular rhythm GI: GI Palp: Yes Soft to palpation Auscultation: normal bowel sounds Skin: General skin exam: normal color and no rashes or lesions noted Neuro: Other: the patient's mental status examination was normal cranial nerve examination is normal save for the diabetic retinopathy and 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
== END 2019-08-24 12:00 | disposition home health service (06) | DRG 560 ==
PROVIDERS: Admitting Provider Psychiatry & Neurology Neurology; Visit Provider Psychiatry & Neurology Neurology
DX: Z47.81 Encounter for orthopedic aftercare following surgical amputation (principal); H33.22 Serous retinal detachment, left eye; Z89.511 Acquired absence of right leg below knee; D64.9 Anemia, unspecified; E11.51 Type 2 diabetes mellitus with diabetic peripheral angiopathy without gangrene; E11.319 Type 2 diabetes mellitus with unspecified diabetic retinopathy without macular edema; E11.42 Type 2 diabetes mellitus with diabetic polyneuropathy; E78.5 Hyperlipidemia, unspecified; H26.9 Unspecified cataract; I48.91 Unspecified atrial fibrillation; I10 Essential (primary) hypertension; Z99.81 Dependence on supplemental oxygen; Z79.84 Long term (current) use of oral hypoglycemic drugs; Z86.73 Personal history of transient ischemic attack (TIA), and cerebral infarction without residual deficits
CPT/HCPCS: 36415; 80048; 85025; 87081; 97110; 97116; 97161; 97165; 97530; 97535; A9270

== ENCOUNTER 2019-12-02 09:35 | Outpatient (RCR) | payer OTHER, SELFPAY ==
--- NOTE | 2019-12-02 15:41 | PTOPEVAL ---
Thank you for referring Kwan Woods to [facility]. Please review, sign, date and return this plan of care RY. Pt seen for initial evaluation for gait training with BKA prosthesis. He demonstrates decreased functional mobility with transfers, ambulation endurance and ambulation deviation, decreased balance, and decreased performance on steps and uneven surfaces. Recommend additional PT 2x/wk x 6 wk. I agree with and certify that the following plan of care is medically necessary. Referring Physician Date Referring Provider: Dr Rene Goff MD *PT Outpatient Evaluation Start: 12/02/19 09:56 Freq: Status: Active Protocol: Document 12/02/19 09:57 CAP (Rec: 12/02/19 10:48 CAP [id number]) Therapy Assessment Status Assessment Status Assessment Status Evaluation Outpatient Past Medical History Past Medical History Source of Past Medical History Patient,Recalled from Previous Visit, Confirmed with Patient /Family Neurological History Hx Cerebrovascular Accident (CVA) Yes Hx Transient Ischemic Attacks (TIA) Yes Cardiovascular History Hx Atrial Fibrillation Yes Hx Hypertension Yes Genitourinary History Hx Dialysis Yes Musculoskeletal History Hx Amputation Yes: JULY 2019 RIGHT LEG Hx Osteomyelitis Yes Endocrine History Hx Diabetes Yes HEENT History Hx HEENT Disorders No Significant History Integumentary History Hx Other Skin Disorders Yes: RIGHT LEG AMPUTATED Reproductive History Hx Reproductive Disorders No Significant History Psychosocial History Hx Psychiatric Disorders No Significant History Pain History Has Past Pain Affected Your Daily Life Yes History of Long-Term Prescription Pain Yes Medication Use (Opiates) Ineffective Methods of Pain Control PAIN R/T AMPUTATION Anesthesia History Hx Other Anesthesia Reactions Yes Evaluation Information Problem Diagnosis right BKA Onset 07/2019 Cause osteomyelitis Additional Evaluation Detail Pt has had prosthesis for 2 wks. Prosthetic company is [employer] in [place]. Subjective Information Pt had acute rehab therapy at Query Text:As Reported By Patient/ [facility] from 08/18/19 Family -08/24/19. He fell at home then required another surgery due to limb opened back up. He is wearing the prosthesis 4 -5 hours a day. Denies pressure areas or redness when removing prosthesis. Reports difficulty with negotiatin
--- NOTE | 2019-12-05 11:06 | PCPTNOTE ---
Patient called & cancelled his scheduled appointment for the next 2 weeks due to testing positive for COVID.
--- NOTE | 2019-12-15 12:44 | PCPTNOTE ---
Patient called & cancelled scheduled appointment this date due to illness.
--- NOTE | 2019-12-19 09:29 | PCPTNOTE ---
Called Pt due to no show for appt. He states he is on isolation until 12/28/19. He will be seen for his re-eval on 12/29/19.
--- NOTE | 2020-01-06 10:52 | PCPTNOTE ---
Admitting Provider: Attending Provider: PHYSICIAN NOT ON STAFF Patient:Kwan Woods Date of :1970 Discharge Note Patient has not returned for any further treatments since 12/02/2019, therefore he will be discharged at this time. Patient?s initial visit was on 12/02/2019 10:00 and he had a total of 1 visits. The goals have not been met. Thank you for referring this patient to [facility]. Please review, sign, date and return this discharge summary RY. I have been updated about the patient's current status and I agree with discharge from the above service at this time. Referring Physician Date
== END 2020-01-09 07:56 | disposition home or self-care (01) ==
LOC: ANHPT 09:35
DX: Z47.81 Encounter for orthopedic aftercare following surgical amputation (principal); Z89.511 Acquired absence of right leg below knee
CPT/HCPCS: 97110; 97116; 97162